=== PATIENT | female | born 1930 | race African-American/Black ===

== ENCOUNTER 2018-07-12 09:44 | Emergency (ER) | payer OTHER ==
[~2018-07-12] VITALS: Ht 167.6 cm; Wt 61.7 kg
[~2018-07-12 09:44] MED LIST: ACCUPRIL40 MG PO; ASPIR 8181 MG PO; CELEBREX100 MG PO; GLUCOPHAGE XR500 MG PO; TARKA 2/2401 BOTTLE PO
[2018-07-12] MEDS ORDERED: ZOLOFT50 MG (10:17)
[2018-07-12] MEDS ORDERED: TOPROL XL100 MG (10:17)
[2018-07-12] MEDS ORDERED: DOCUSIL100 MG (10:18)
[2018-07-12] MEDS ORDERED: VITAMIN D32000 UNIT (10:18)
[2018-07-12] MEDS ORDERED: COZAAR100 MG (10:19)
== END 2018-07-12 17:32 | disposition home or self-care (01) ==
LOC: ER 09:44
DX: L89.321 Pressure ulcer of left buttock, stage 1 (principal); L08.89 Other specified local infections of the skin and subcutaneous tissue; B95.61 Methicillin susceptible Staphylococcus aureus infection as the cause of diseases classified elsewhere; B96.6 Bacteroides fragilis [B. fragilis] as the cause of diseases classified elsewhere; B96.89 Other specified bacterial agents as the cause of diseases classified elsewhere